=== PATIENT | female | born 1930 | race Caucasian/White ===

== ENCOUNTER 2018-11-21 09:39 | Emergency (ER) | payer MEDICARE ==
[~2018-11-21] VITALS: Ht 167.6 cm; Wt 79.5 kg
[~2018-11-21 09:39] MED LIST: ANTIVERT12.5 MG PO; CIPROFLOXACN500 MG PO; COZAAR100 MG PO; LEVOTHYROXIN50 MC1 PO; METOPROLOL SUC200 MG PO; PANTOPRAZOLE SO40 MG OR; PRADAXA150 MG PO; SIMVASTATIN40 MG OR; VERAPAMIL OR
[2018-11-21 10:29] LABS: HEMATOCRIT 37.3 % (37.0-47.0); HEMOGLOBIN 12.1 g/dl (12.0-16.0); IMMATURE GRANULOCYTES 0.5 % (0.0-5.0); MEAN CELL VOLUME 89.2 fL CALC (80.0-100.0); MEAN CORPUSCULAR HGB 28.9 pG CALC (26.0-32.0); MEAN CORPUSCULAR HGB CONC 32.4 g/L CALC (32.0-36.0); NEUT# 4.37 thou/uL (2.00-7.15); RED BLOOD COUNT 4.18 mill/uL (4.20-5.60); RED CELL DISTRI WIDTH 14.3 % (11.5-15.5)
[2018-11-21 10:38] LABS: ALBUMIN 4.5 g/dL (3.2-5.0); BILIRUBIN, TOTAL 0.7 mg/dL (0.0-1.4); CREATININE 1.2 mg/dL (0.5-1.0); TOTAL PROTEIN 8.2 g/dL (6.3-8.2)
[2018-11-21 10:43] LABS: INTERNATIONAL NORMALIZED RATIO 1.4 RATIO (0.7-1.3); PROTHROMBIN TIME 14.4 SECONDS (9.0-12.5)
[2018-11-21 11:32] VITALS: BP 121/79
== END 2018-11-21 11:50 | disposition home or self-care (01) ==
LOC: ED 09:39
PROVIDERS: Family Medicine
DX: K92.1 Melena (principal); I48.91 Unspecified atrial fibrillation; I11.0 Hypertensive heart disease with heart failure; I50.9 Heart failure, unspecified; Z95.0 Presence of cardiac pacemaker

== ENCOUNTER 2018-11-24 13:22 | Emergency (ER) | payer MEDICARE ==
[~2018-11-24] VITALS: Ht 167.6 cm; Wt 80.0 kg
[2018-11-24 14:37] LABS: HEMATOCRIT 36.1 % (37.0-47.0); HEMOGLOBIN 11.6 g/dl (12.0-16.0); IMMATURE GRANULOCYTES 0.8 % (0.0-5.0); MEAN CELL VOLUME 89.6 fL CALC (80.0-100.0); MEAN CORPUSCULAR HGB 28.8 pG CALC (26.0-32.0); MEAN CORPUSCULAR HGB CONC 32.1 g/L CALC (32.0-36.0); NEUT# 7.12 thou/uL (2.00-7.15); RED BLOOD COUNT 4.03 mill/uL (4.20-5.60); RED CELL DISTRI WIDTH 14.1 % (11.5-15.5)
[2018-11-24 14:56] LABS: ALBUMIN 4.3 g/dL (3.2-5.0); ALKALINE PHOSPHATASE 55 u/l (38-126); ANION GAP 17 (6-22 (CALC)); BILIRUBIN, TOTAL 0.8 mg/dL (0.0-1.4); BUN 22 mg/dL (8-23); BUN/CREATININE RATIO 23 (12-20 (CALC)); CARBON DIOXIDE 23 mmol/l (22-30); CHLORIDE 98 mmol/l (95-108); GFR 53 ML/MIN (>=60 (CALC)); GFR FOR AFR.AMER. > 60 ML/MIN (>=60 (CALC)); POTASSIUM 4.2 mmol/l (3.5-5.1); SGOT/AST 28 u/l (9-36); SODIUM 134 mmol/l (137-146); TOTAL PROTEIN 7.9 g/dL (6.3-8.2)
[2018-11-24] MEDS ORDERED: DULCOLAX10 MG RE (15:09)
[2018-11-24 15:22] VITALS: BP 137/71
[2018-11-25] MEDS ORDERED: AVAPRO300 MG PO (13:59)
[2018-11-25] MEDS ORDERED: METAMUCIL28 % PO (14:02)
== END 2018-11-24 15:22 | disposition home or self-care (01) ==
LOC: ED 13:22
PROVIDERS: Emergency Medicine
DX: K56.41 Fecal impaction (principal); M54.5 Low back pain; K44.9 Diaphragmatic hernia without obstruction or gangrene; I10 Essential (primary) hypertension; Z95.0 Presence of cardiac pacemaker

== ENCOUNTER 2018-11-25 13:18 | Inpatient (IN) | payer MEDICARE ==
[~2018-11-25] VITALS: Ht 167.6 cm; Wt 77.1 kg
[~2018-11-25 13:18] MED LIST changes: +DULCOLAX10 MG RE
[2018-11-25] MEDS ORDERED: AVAPRO300 MG PO (13:59)
[2018-11-25] MEDS ORDERED: METAMUCIL28 % PO (14:02)
[2018-11-25 15:21] VITALS: BP 158/87
[2018-11-25 15:46] LABS: HEMATOCRIT 33.3 % (37.0-47.0); HEMOGLOBIN 10.9 g/dl (12.0-16.0); IMMATURE GRANULOCYTES 0.6 % (0.0-5.0); MEAN CELL VOLUME 88.3 fL CALC (80.0-100.0); MEAN CORPUSCULAR HGB 28.9 pG CALC (26.0-32.0); MEAN CORPUSCULAR HGB CONC 32.7 g/L CALC (32.0-36.0); NEUT# 5.78 thou/uL (2.00-7.15); RED BLOOD COUNT 3.77 mill/uL (4.20-5.60)
[2018-11-25 16:02] LABS: ALBUMIN 3.7 g/dL (3.2-5.0); ALKALINE PHOSPHATASE 58 u/l (38-126); ANION GAP 14 (6-22 (CALC)); BILIRUBIN, TOTAL 0.8 mg/dL (0.0-1.4); BUN 19 mg/dL (8-23); BUN/CREATININE RATIO 20 (12-20 (CALC)); CARBON DIOXIDE 25 mmol/l (22-30); CHLORIDE 95 mmol/l (95-108); GFR 53 ML/MIN (>=60 (CALC)); GFR FOR AFR.AMER. > 60 ML/MIN (>=60 (CALC)); POTASSIUM 4.3 mmol/l (3.5-5.1); SGOT/AST 24 u/l (9-36); SODIUM 129 mmol/l (137-146); TOTAL PROTEIN 6.9 g/dL (6.3-8.2)
[2018-11-25 17:34] LABS: URINE BILIRUBIN - DIPSTICK NEGATIVE (NEGATIVE); URINE BLOOD DIPSTICK MODERATE (NEGATIVE); URINE COLOR YELLOW; URINE GLUCOSE - DIPSTICK NEGATIVE (NEGATIVE); URINE KETONE TRACE mg/dL (NEGATIVE); URINE PROTEIN - DIPSTICK 30 mg/dL (NEG-TRACE); URINE UROBILINOGEN - DIPSTICK 0.2 E.U./dL (0.2)
[2018-11-25 17:36] LABS: URINE LEUK ESTERASE LARGE (NEGATIVE); URINE NITRITE - DIPSTICK POSITIVE (Negative)
[2018-11-25 17:56] LABS: URINE BACTERIA MANY hpf; URINE SQUAMOUS EPITHELIAL CELL FEW EPI/hpf (0-FEW); URINE WBC >100 WBC/hpf (0-5)
[2018-11-25 19:00] VITALS: BP 122/71
[2018-11-26 04:00] VITALS: BP 134/64
[2018-11-26 05:40] LABS: HEMATOCRIT 31.8 % (37.0-47.0); HEMOGLOBIN 10.6 g/dl (12.0-16.0); MEAN CELL VOLUME 88.1 fL CALC (80.0-100.0); MEAN CORPUSCULAR HGB 29.4 pG CALC (26.0-32.0); MEAN CORPUSCULAR HGB CONC 33.3 g/L CALC (32.0-36.0); RED BLOOD COUNT 3.61 mill/uL (4.20-5.60)
[2018-11-26 06:06] LABS: ANION GAP 15 (6-22 (CALC)); BUN 14 mg/dL (8-23); BUN/CREATININE RATIO 16 (12-20 (CALC)); CARBON DIOXIDE 24 mmol/l (22-30); CHLORIDE 95 mmol/l (95-108); CREATININE 0.9 mg/dL (0.5-1.0); GFR 59 ML/MIN (>=60 (CALC)); GFR FOR AFR.AMER. > 60 ML/MIN (>=60 (CALC)); POTASSIUM 4.5 mmol/l (3.5-5.1); SODIUM 129 mmol/l (137-146)
[2018-11-26 07:29] VITALS: BP 126/78
[2018-11-26] MEDS ORDERED: TYLENOL 500MG TAB PO (13:08)
[2018-11-26] MEDS ORDERED: VERAPAMIL PO (13:09)
[2018-11-26] MEDS ORDERED: PROTONIX40 M2 PO (13:10)
[2018-11-26] MEDS ORDERED: STOOL SOFTENER100 MG PO (13:23)
[2018-11-26 15:30] VITALS: BP 138/77
[2018-11-26 19:06] VITALS: BP 162/92
[2018-11-27 03:48] VITALS: BP 134/68
[2018-11-27 04:24] LABS: HEMATOCRIT 31.2 % (37.0-47.0); HEMOGLOBIN 10.3 g/dl (12.0-16.0); IMMATURE GRANULOCYTES 0.3 % (0.0-5.0); MEAN CELL VOLUME 88.1 fL CALC (80.0-100.0); MEAN CORPUSCULAR HGB 29.1 pG CALC (26.0-32.0); NEUT# 4.43 thou/uL (2.00-7.15); RED BLOOD COUNT 3.54 mill/uL (4.20-5.60); RED CELL DISTRI WIDTH 13.6 % (11.5-15.5)
[2018-11-27 04:45] LABS: ALBUMIN 3.2 g/dL (3.2-5.0); ALKALINE PHOSPHATASE 52 u/l (38-126); ANION GAP 14 (6-22 (CALC)); BILIRUBIN, TOTAL 0.5 mg/dL (0.0-1.4); BUN 15 mg/dL (8-23); BUN/CREATININE RATIO 18 (12-20 (CALC)); CARBON DIOXIDE 24 mmol/l (22-30); CHLORIDE 92 mmol/l (95-108); CREATININE 0.9 mg/dL (0.5-1.0); GFR 59 ML/MIN (>=60 (CALC)); GFR FOR AFR.AMER. > 60 ML/MIN (>=60 (CALC)); MAGNESIUM 1.4 mg/dL (1.6-2.3); POTASSIUM 4.5 mmol/l (3.5-5.1); SGOT/AST 21 u/l (9-36); SODIUM 126 mmol/l (137-146)
[2018-11-27 08:09] VITALS: BP 95/51
[2018-11-27 15:24] VITALS: BP 131/78
[2018-11-27 18:45] VITALS: BP 121/69
[2018-11-28 03:51] VITALS: BP 122/71
[2018-11-28 06:25] LABS: HEMATOCRIT 31.7 % (37.0-47.0); HEMOGLOBIN 10.4 g/dl (12.0-16.0); IMMATURE GRANULOCYTES 0.7 % (0.0-5.0); MEAN CELL VOLUME 88.5 fL CALC (80.0-100.0); MEAN CORPUSCULAR HGB 29.1 pG CALC (26.0-32.0); MEAN CORPUSCULAR HGB CONC 32.8 g/L CALC (32.0-36.0); NEUT# 3.89 thou/uL (2.00-7.15); RED BLOOD COUNT 3.58 mill/uL (4.20-5.60); RED CELL DISTRI WIDTH 13.8 % (11.5-15.5)
[2018-11-28 07:16] LABS: ANION GAP 15 (6-22 (CALC)); BUN 19 mg/dL (8-23); BUN/CREATININE RATIO 22 (12-20 (CALC)); CALCULATED LDLCHOLESTEROL 78 mg/dL (62-129 (CALC)); CARBON DIOXIDE 25 mmol/l (22-30); CHLORIDE 92 mmol/l (95-108); CHOLESTEROL HDL RATIO 4.5 (<4.4 (CALC)); CREATININE 0.9 mg/dL (0.5-1.0); GFR 59 ML/MIN (>=60 (CALC)); GFR FOR AFR.AMER. > 60 ML/MIN (>=60 (CALC)); HDL CHOLESTEROL 29 mg/dL (>=40); SODIUM 126 mmol/l (137-146); TOTAL CHOLESTEROL 131 mg/dl (0-199); TOTAL TRIGLYCERIDES 114 mg/dl (30-149); VLDL CHOLESTROL 23 mg/dl (0-48 (CALC))
[2018-11-28 07:19] LABS: MAGNESIUM 1.9 mg/dL (1.6-2.3)
[2018-11-28 08:14] VITALS: BP 90/48
[2018-11-28 11:44] VITALS: BP 133/80
[2018-11-28 15:10] VITALS: BP 117/71
[2018-11-28 20:07] VITALS: BP 148/64
[2018-11-29 03:02] VITALS: BP 118/64
[2018-11-29 08:01] VITALS: BP 120/73
[2018-11-29 16:20] VITALS: BP 127/64
[2018-11-29 19:00] VITALS: BP 123/61
[2018-11-30 03:25] VITALS: BP 150/82
[2018-11-30 04:38] VITALS: BP 144/81
[2018-11-30 05:14] LABS: HEMATOCRIT 33.6 % (37.0-47.0); IMMATURE GRANULOCYTES 0.8 % (0.0-5.0); MEAN CELL VOLUME 88.7 fL CALC (80.0-100.0); MEAN CORPUSCULAR HGB CONC 32.7 g/L CALC (32.0-36.0); NEUT# 2.63 thou/uL (2.00-7.15); RED BLOOD COUNT 3.79 mill/uL (4.20-5.60); RED CELL DISTRI WIDTH 14.1 % (11.5-15.5)
[2018-11-30 05:33] LABS: ALBUMIN 3.5 g/dL (3.2-5.0); ALKALINE PHOSPHATASE 58 u/l (38-126); AMYLASE 37 u/l (30-110); ANION GAP 15 (6-22 (CALC)); BILIRUBIN, TOTAL 0.4 mg/dL (0.0-1.4); BUN 14 mg/dL (8-23); BUN/CREATININE RATIO 16 (12-20 (CALC)); CARBON DIOXIDE 26 mmol/l (22-30); CHLORIDE 93 mmol/l (95-108); CREATININE 0.9 mg/dL (0.5-1.0); GFR 59 ML/MIN (>=60 (CALC)); GFR FOR AFR.AMER. > 60 ML/MIN (>=60 (CALC)); LIPASE 104 u/l (23-300); MAGNESIUM 1.6 mg/dL (1.6-2.3); POTASSIUM 4.6 mmol/l (3.5-5.1); SGOT/AST 29 u/l (9-36); SODIUM 129 mmol/l (137-146); TOTAL PROTEIN 6.6 g/dL (6.3-8.2)
[2018-11-30 08:00] VITALS: BP 139/70
[2018-11-30 10:01] VITALS: BP 139/70
== END 2018-11-30 15:17 | disposition home or self-care (01) | DRG 389 ==
LOC: ED 13:18 → ED-I 14:06 → ED 14:29 → MS2 14:30
PROVIDERS: Emergency Medicine; Internal Medicine; Nurse Practitioner Family; ADMIT Internal Medicine Nephrology; ATTEND Internal Medicine Nephrology
DX: K56.41 Fecal impaction (principal); N39.0 Urinary tract infection, site not specified; E87.1 Hypo-osmolality and hyponatremia; I11.0 Hypertensive heart disease with heart failure; I50.9 Heart failure, unspecified; E03.9 Hypothyroidism, unspecified; I48.2 Chronic atrial fibrillation; E78.5 Hyperlipidemia, unspecified; E83.42 Hypomagnesemia; K21.9 Gastro-esophageal reflux disease without esophagitis; M54.5 Low back pain; B96.20 Unspecified Escherichia coli [E. coli] as the cause of diseases classified elsewhere; Z95.0 Presence of cardiac pacemaker; Z87.11 Personal history of peptic ulcer disease
CPT/HCPCS: J3475

== ENCOUNTER 2018-12-04 06:37 | Emergency (ER) | payer MEDICARE ==
[~2018-12-04] VITALS: Ht 167.6 cm; Wt 70.0 kg
[~2018-12-04 06:37] MED LIST changes: +AVAPRO300 MG PO; +METAMUCIL28 % PO; +PROTONIX40 M2 PO; +STOOL SOFTENER100 MG PO; +TYLENOL 500MG TAB PO; +VERAPAMIL PO
[2018-12-04 08:58] LABS: URINE BILIRUBIN - DIPSTICK NEGATIVE (NEGATIVE); URINE BLOOD DIPSTICK SMALL (NEGATIVE); URINE COLOR YELLOW; URINE GLUCOSE - DIPSTICK NEGATIVE (NEGATIVE); URINE KETONE 40 mg/dL (NEGATIVE); URINE NITRITE - DIPSTICK NEGATIVE (Negative); URINE PROTEIN - DIPSTICK 30 mg/dL (NEG-TRACE); URINE UROBILINOGEN - DIPSTICK 0.2 E.U./dL (0.2)
[2018-12-04 08:59] LABS: URINE LEUK ESTERASE MODERATE (NEGATIVE)
[2018-12-04 09:06] LABS: URINE SQUAMOUS EPITHELIAL CELL FEW EPI/hpf (0-FEW); URINE TRANSITIONAL EPI. CELLS FEW hpf; URINE WBC 20-50 WBC/hpf (0-5)
[2018-12-04 09:32] LABS: HEMATOCRIT 31.3 % (37.0-47.0); HEMOGLOBIN 10.1 g/dl (12.0-16.0); IMMATURE GRANULOCYTES 0.7 % (0.0-5.0); MEAN CELL VOLUME 88.4 fL CALC (80.0-100.0); MEAN CORPUSCULAR HGB 28.5 pG CALC (26.0-32.0); MEAN CORPUSCULAR HGB CONC 32.3 g/L CALC (32.0-36.0); NEUT# 4.31 thou/uL (2.00-7.15); RED BLOOD COUNT 3.54 mill/uL (4.20-5.60)
[2018-12-04 09:38] LABS: ALBUMIN 3.7 g/dL (3.2-5.0); ALKALINE PHOSPHATASE 61 u/l (38-126); ANION GAP 16 (6-22 (CALC)); BILIRUBIN, TOTAL 0.8 mg/dL (0.0-1.4); BUN 18 mg/dL (8-23); BUN/CREATININE RATIO 22 (12-20 (CALC)); CARBON DIOXIDE 24 mmol/l (22-30); CHLORIDE 93 mmol/l (95-108); CREATININE 0.8 mg/dL (0.5-1.0); GFR > 60 ML/MIN (>=60 (CALC)); GFR FOR AFR.AMER. > 60 ML/MIN (>=60 (CALC)); LIPASE 86 u/l (23-300); POTASSIUM 4.1 mmol/l (3.5-5.1); SGOT/AST 29 u/l (9-36); SODIUM 129 mmol/l (137-146)
[2018-12-04 09:44] LABS: GFR > 60 ML/MIN (>=60 (CALC)); GFR FOR AFR.AMER. > 60 ML/MIN (>=60 (CALC))
[2018-12-04 15:10] VITALS: BP 173/78
== END 2018-12-04 15:15 | disposition short-term general hospital (02) ==
LOC: ED 06:37
PROVIDERS: Family Medicine
DX: K83.9 Disease of biliary tract, unspecified (principal); N39.0 Urinary tract infection, site not specified; R10.32 Left lower quadrant pain; R10.31 Right lower quadrant pain; I11.0 Hypertensive heart disease with heart failure; I50.9 Heart failure, unspecified; I48.91 Unspecified atrial fibrillation; Z95.0 Presence of cardiac pacemaker
CPT/HCPCS: Q9967